=== PATIENT | female | born 1990 | race Caucasian/White ===

== ENCOUNTER 2016-10-23 13:21 | Emergency (ER) | payer OTHER ==
[2016-10-23 14:07] LABS: BASOPHIL 0.7 % (0-2); EOSINOPHIL 3.6 % (0-5); HCT 39.4 % (37.0-47.0); HGB 13.6 g/dl (12.5-16.0); LYMPHOCYTE 37.1 % (15-48); MCH 29.3 pg (25.0-31.0); MCHC 34.5 g/dL (32.0-36.0); MCV 84.9 fL (78.0-100.0); MONOCYTE 8.4 % (0-12); MPV 11.8 fL (6.0-9.5); NEUTROPHIL 50.2 % (41-80); PLT 223 K/uL (150-400); RBC 4.64 M/uL (4.20-5.40); RDW 13.6 % (11.5-14.0)
[2016-10-23 14:27] LABS: BILIRUBIN NEGATIVE (NEGATIVE); BLOOD NEGATIVE Ery/uL (NEGATIVE); CLARITY CLEAR (CLEAR); COLOR YELLOW (YELLOW); GLUCOSE (U) NORMAL (NORMAL); KETONE (U) NEGATIVE (NEGATIVE); LEUKOCYTES NEGATIVE Leu/uL (NEGATIVE); NITRITE NEGATIVE (NEGATIVE); PROTEIN NEGATIVE (NEGATIVE); SPECIFIC GRAVITY >=1.030 (1.001-1.030); UROBILINOGEN 0.2 mg/dL (0.2-1.0); pH 5.5 (5.0-9.0)
[2016-10-23 14:28] LABS: ALBUMIN 4.3 g/dL (3.5-5.0); BILIRUBIN - TOTAL 0.4 mg/dL (0.1-1.0); CREATININE 0.8 mg/dL (0.5-1.0); GLOBULIN (CALCULATION) 3.1 g/dL (2.2-4.2); POTASSIUM 3.9 mmol/L (3.5-5.1); TOTAL PROTEIN 7.4 g/dL (6.4-8.3)
== END 2016-10-23 15:57 | disposition home or self-care (01) ==
LOC: FER 13:21
PROVIDERS: Emergency Medicine
DX: G43.109 Migraine with aura, not intractable, without status migrainosus (principal); I49.3 Ventricular premature depolarization
CPT/HCPCS: 36415; 70450; 80053; 81003; 85025; J1100; J1885; J2405